=== PATIENT | female | born 1985 | race American Indian/Alaskan Native ===

== ENCOUNTER 2021-10-27 18:38 | Emergency (ER) | payer MEDICAID, OTHER ==
[~2021-10-27] VITALS: Ht 162.6 cm; Wt 77.1 kg
[2021-10-27 19:05] VITALS: BP 147/80
--- NOTE | 2021-10-27 19:08 | NUR ---
TO LOBBY A/W BED AMBULATORY
[2021-10-27] MEDS ORDERED: IBUPROFEN 600 MG TAB PO ONE (19:40)
--- NOTE | 2021-10-27 20:00 | NUR ---
SEEN AND EXAMINED BY PA
[2021-10-27] MEDS ORDERED: ACET-10509 PO (20:26)
[2021-10-27] MEDS ORDERED: IBUP-2213 PO (20:26)
--- NOTE | 2021-10-27 20:49 | NUR ---
Patient discharged with v/s stable. Written and verbal after care instructions given and explained. Patient alert, oriented and verbalized understanding of instructions. Ambulatory with steady gait. All questions addressed prior to discharge. ID band removed. Patient advised to follow up with PMD. Rx of TYLENOL AND MOTRIN given. Patient educated on indication of medication including possible reaction and side effects. Opportunity to ask questions provided and answered.
== END 2021-10-27 20:49 | disposition home or self-care (01) ==
LOC: MED 18:38
DX: S92.531A Displaced fracture of distal phalanx of right lesser toe(s), initial encounter for closed fracture (principal); X58.XXXA Exposure to other specified factors, initial encounter; Y93.89 Activity, other specified; Y92.89 Other specified places as the place of occurrence of the external cause; Y99.8 Other external cause status
CPT/HCPCS: 73660; 99283

== ENCOUNTER 2022-10-13 09:55 | Emergency (ER) | payer OTHER ==
[~2022-10-13] VITALS: Ht 162.6 cm; Wt 79.8 kg
[~2022-10-13 09:55] MED LIST: ACET-10509 PO; IBUP-2213 PO
[2022-10-13 10:00] VITALS: BP 128/78
--- NOTE | 2022-10-13 10:38 | NUR ---
36/F PRESENTS TO ED WITH C/O RIGHT ARM PAIN X1 WEEK S/P TRIP AND FALL, REPORTS TAKING TYLENOL WITH NO RELIEF. PATIENT DENIES NEW INJURY OR TRAUMA SINCE FALL, DENIES HEAD/NECK INJURY OR LOC AT TIME OF FALL.
[2022-10-13] MEDS ORDERED: ACET-10509 PO (12:12)
[2022-10-13] MEDS ORDERED: IBUP-2213 PO (12:12)
--- NOTE | 2022-10-13 12:40 | NUR ---
PT'S RIGHT ELBOW WRAPPED WITH 3" BERENICE WRAP, CMS WNL BEFORE AND AFTER. PT ALSO PLACED IN RIGHT ARM SLING.
--- NOTE | 2022-10-13 13:18 | NUR ---
Patient discharged with v/s stable. Written and verbal after care instructions ABOUT ELBOW CONTUSION given and explained. Patient alert, oriented and verbalized understanding of instructions. Ambulatory with steady gait. All questions addressed prior to discharge. ID band removed. Patient advised to follow up with PMD. Rx of TYLENOL EXTRA STRENGTH AND IBUPROFEN given. Patient educated on indication of medication including possible reaction and side effects. Opportunity to ask questions provided and answered.
== END 2022-10-13 13:18 | disposition home or self-care (01) ==
LOC: MED 09:55
DX: S50.01XA Contusion of right elbow, initial encounter (principal); Z79.899 Other long term (current) drug therapy; W01.0XXA Fall on same level from slipping, tripping and stumbling without subsequent striking against object, initial encounter; Y93.89 Activity, other specified; Y92.89 Other specified places as the place of occurrence of the external cause; Y99.8 Other external cause status
CPT/HCPCS: 73080; 99283